=== PATIENT | male | born 1970 | race Caucasian/White ===

== ENCOUNTER 2021-12-07 05:10 | Day surgery (SDC) | payer OTHER ==
[2021-12-04 14:33] VITALS: BMI 26.8
[2021-12-07 14:25] VITALS: TEMP 97.1
[2021-12-07 15:14] VITALS: BP 105/65; PULSE 66
== END 2021-12-07 15:10 | disposition home or self-care (01) ==
LOC: JASU-ENDO 05:10
PROVIDERS: ATTEND Internal Medicine Gastroenterology
PROC: 0DBP8ZX Excision of Rectum, Via Natural or Artificial Opening Endoscopic, Diagnostic (ICD-10-PCS; principal; 2021-12-07 14:30)
DX: Z12.11 Encounter for screening for malignant neoplasm of colon (principal); Z86.010 Personal history of colon polyps; K62.1 Rectal polyp; K64.8 Other hemorrhoids
CPT/HCPCS: 88305-TC

== ENCOUNTER 2022-04-12 04:42 | Day surgery (SDC) | payer OTHER ==
[2022-04-06 14:23] VITALS: BMI 26.8
[2022-04-12] MEDS ORDERED: LIDOCAINE HCL 2% JELLY 10 ML CARTRIDGE ONE (10:06)
[2022-04-12] MEDS ORDERED: ACETAMINOPHEN INJECTION 100 ML IVPB ONE (10:07)
[2022-04-12] MEDS ORDERED: LIDOCAINE HCL 2% JELLY 10 ML CARTRIDGE TP ONE (10:13)
[2022-04-12 10:18] VITALS: TEMP 97.6
[2022-04-12 10:48] VITALS: BP 115/83; PULSE 70
== END 2022-04-12 10:57 | disposition home or self-care (01) ==
LOC: JASU-ENDO 04:42
PROVIDERS: ATTEND Internal Medicine Gastroenterology
PROC: 06LY8CC Occlusion of Hemorrhoidal Plexus with Extraluminal Device, Via Natural or Artificial Opening Endoscopic (ICD-10-PCS; principal; 2022-04-12 09:30)
DX: K64.3 Fourth degree hemorrhoids (principal)
CPT/HCPCS: 88305-TC; 88342-TC

== ENCOUNTER 2022-04-14 14:25 | Inpatient (IN) | payer OTHER ==
[2022-04-14 14:31] VITALS: BMI 26.4
[2022-04-14] MEDS ORDERED: ACETAMINOPHEN 1000 MG/100 ML BAG IVPB ONE (14:48)
[2022-04-14] MEDS ORDERED: SODIUM CHLORIDE 1,000 ML IV STA (14:48)
[2022-04-14] MEDS ORDERED: ACETAMINOPHEN INJECTION 100 ML IVPB ONE (15:57)
[2022-04-14 16:24] LABS: BASO % 0.2 % (0-2.0); EOS % 0.3 % (0-4.5); HEMATOCRIT 39.2 % (35.4-49); HEMOGLOBIN 12.6 GM/dL (11.7-16.9); LYMPH % 8.8 % (8-40); MCHC 32.2 g/dl (32.0-35.9); MEAN CELL VOLUME 71.4 fl (80-96); MEAN PLT VOLUME 8.3 fl (7.5-11.1); MONO % 9.9 % (3.8-10.2); NEUT % 80.8 % (42.8-82.8); PLATELET COUNT 265 10^3/uL (134-434); RBC 5.49 M/mm3 (4.00-5.60); RDW 16.6 % (11.9-15.9); WHITE BLOOD COUNT 13.3 K/mm3 (4.0-10.0)
[2022-04-14 16:52] LABS: ALBUMIN 3.7 g/dl (3.4-5.0); BLOOD UREA NITROGEN 18.8 mg/dL (7-18)
[2022-04-14 16:55] LABS: CREATININE 1.1 mg/dL (0.55-1.3)
[2022-04-14 16:56] LABS: BILIRUBIN,TOTAL 0.8 mg/dL (0.2-1)
[2022-04-14] MEDS ORDERED: CEFTRIAXONE 1,000 MG in DEXTROSE 5%-WATER - 50 ML IVPB ONE (19:53)
[2022-04-14] MEDS ORDERED: CEFTRIAXONE 1 GM/50 ML BAG ONE (20:33)
[2022-04-14 23:23] LABS: EPI CELLS 4 /uL (0-25.1); HYALINE CASTS 2 /uL (0-3.1); PH,URINE 5.5 (5.0-8.0); URINE APPEARANCE CLEAR; URINE BACTERIA 0 /uL (0-1359); URINE BILIRUBIN NEGATIVE (NEGATIVE); URINE COLOR YELLOW; URINE GLUCOSE (UA) NEGATIVE (NEGATIVE); URINE KETONE 1+ (NEGATIVE); URINE LEUK ESTERASE NEGATIVE (NEGATIVE); URINE NITRITE NEGATIVE (NEGATIVE); URINE PROTEIN 1+ (NEGATIVE); URINE RBC 4 /uL (0-23.9); URINE UROBILINOGEN 0.2 mg/dL (0.2-1.0); URINE WBC 3 /uL (0-25.8)
[2022-04-14] MEDS ORDERED: DOCUSATE SODIUM 100 MG CAPSULE (FP) PO ONE (23:54)
[2022-04-14] MEDS: DOCUSATE SODIUM 100 MG CAPSULE (FP) PO SCH (23:55)
[2022-04-15] MEDS: DEXTROSE 5%-NORMAL SALINE 1,000 ML IV SCH (05:38)
[2022-04-15 07:37] LABS: BASO % 0.3 % (0-2.0); EOS % 0.3 % (0-4.5); HEMATOCRIT 40.6 % (35.4-49); HEMOGLOBIN 13.2 GM/dL (11.7-16.9); LYMPH % 8.1 % (8-40); MCHC 32.6 g/dl (32.0-35.9); MEAN CELL VOLUME 70.5 fl (80-96); MEAN PLT VOLUME 9.4 fl (7.5-11.1); MONO % 11.6 % (3.8-10.2); NEUT % 79.7 % (42.8-82.8); PLATELET COUNT 262 10^3/uL (134-434); RBC 5.76 M/mm3 (4.00-5.60); RDW 16.6 % (11.9-15.9); WHITE BLOOD COUNT 14.1 K/mm3 (4.0-10.0)
[2022-04-15 08:04] LABS: BLOOD UREA NITROGEN 18.7 mg/dL (7-18); CALCIUM 8.1 mg/dL (8.5-10.1); MAGNESIUM 2.1 mg/dL (1.8-2.4)
[2022-04-15 08:05] LABS: ALBUMIN 3.2 g/dl (3.4-5.0)
[2022-04-15 08:08] LABS: BILIRUBIN,TOTAL 0.7 mg/dL (0.2-1); PHOSPHOROUS 3.4 mg/dL (2.5-4.9)
[2022-04-15 08:09] LABS: TOT PROT 6.3 g/dl (6.4-8.2)
[2022-04-15 08:52] LABS: INR 1.3 (0.83-1.09)
[2022-04-15 08:55] LABS: ACTIVATED PTT 57.1 SECONDS (25.2-36.5)
[2022-04-15] MEDS ORDERED: CEFTRIAXONE 1 GM in DEXTROSE 5%-WATER - 50 ML IVPB SCH (10:00)
[2022-04-15] MEDS ORDERED: POLYETHYLENE GLYCOL 3350 119 GM BTL PO SCH (10:30)
[2022-04-15] MEDS: DOCUSATE SODIUM 100 MG CAPSULE (FP) PO SCH ×2 (10:30→22:01)
[2022-04-15] MEDS ORDERED: DOCUSATE SODIUM 100 MG CAPSULE (FP) PO ONE ×2 (11:09→21:58)
[2022-04-15] MEDS ORDERED: CEFTRIAXONE 1 GM/50 ML BAG ONE (11:10)
[2022-04-15] MEDS ORDERED: oxyCODONE HCL 5 MG TABLET ONE ×2 (11:47→21:58)
[2022-04-15] MEDS: oxyCODONE HCL 5 MG TABLET PO PRN ×2 (11:49→22:00)
[2022-04-15 15:46] LABS: HIV INTERPRETATION NEGATIVE (NEGATIVE)
[2022-04-16] MEDS ORDERED: ACETAMINOPHEN 500 MG TABLET (FP) PO PRN (01:39)
[2022-04-16] MEDS ORDERED: CLINDAMYCIN 900 MG PREMIX IVPB 900 MG/50 ML BAG IVPB ONE ×2 (01:44→10:34)
[2022-04-16] MEDS ORDERED: VANCOMYCIN/WATER 1,250 MG/250 ML BAG IVPB ONE (01:45)
[2022-04-16] MEDS ORDERED: PIPERACILLIN/TAZOB 3.375 GM 3.375 GM/50 ML BAG IVPB ONE ×2 (01:45→10:35)
[2022-04-16] MEDS ORDERED: VANCOMYCIN/WATER 1250 MG 1,250 MG/250 ML BAG IVPB ONE ×2 (01:45)
[2022-04-16] MEDS: PIPERACILLIN/TAZOB 3.375 GM 3.375 GM in DEXTROSE 5%-WATER - 50 ML IVPB SCH ×3 (02:30→18:33)
[2022-04-16] MEDS: LACTATED RINGERS SOLUTION 1,000 ML/1,000 ML INFUS.BAG IV SCH (02:47)
[2022-04-16] MEDS: CLINDAMYCIN 900 MG PREMIX IVPB 900 MG/50 ML BAG IVPB SCH ×3 (02:47→18:32)
[2022-04-16 07:54] LABS: BASO % 0.2 % (0-2.0); EOS % 0.2 % (0-4.5); HEMOGLOBIN 12.7 GM/dL (11.7-16.9); LYMPH % 7.5 % (8-40); MCH 23.2 pg (25.7-33.7); MCHC 32.5 g/dl (32.0-35.9); MEAN CELL VOLUME 71.2 fl (80-96); MEAN PLT VOLUME 9.9 fl (7.5-11.1); MONO % 12.1 % (3.8-10.2); PLATELET COUNT 257 10^3/uL (134-434); RBC 5.47 M/mm3 (4.00-5.60); RDW 16.9 % (11.9-15.9); WHITE BLOOD COUNT 13.7 K/mm3 (4.0-10.0)
[2022-04-16 08:03] LABS: INR 1.15 (0.83-1.09); PROTHROMBIN TIME (PATIENT) 13.2 SEC (9.7-13.0)
[2022-04-16 08:06] LABS: ACTIVATED PTT 24.3 SECONDS (25.2-36.5)
[2022-04-16 08:10] LABS: ALBUMIN 2.8 g/dl (3.4-5.0); BILIRUBIN,TOTAL 0.6 mg/dL (0.2-1); BLOOD UREA NITROGEN 21.4 mg/dL (7-18); CALCIUM 7.8 mg/dL (8.5-10.1); PHOSPHOROUS 2.9 mg/dL (2.5-4.9); TOT PROT 5.6 g/dl (6.4-8.2)
[2022-04-16] MEDS ORDERED: POLYETHYLENE GLYCOL (HEALTHYLAX) 3350 17 GM PACKET PO SCH (10:00)
[2022-04-16] MEDS ORDERED: POLYETHYLENE GLYCOL (HEALTHYLAX) 3350 17 GM PACKET ONE (10:34)
[2022-04-16] MEDS ORDERED: DOCUSATE SODIUM 100 MG CAPSULE (FP) PO ONE (10:34)
[2022-04-16] MEDS: DOCUSATE SODIUM 100 MG CAPSULE (FP) PO SCH ×2 (10:58→21:44)
[2022-04-16] MEDS: POLYETHYLENE GLYCOL (HEALTHYLAX) 3350 17 GM PACKET PO SCH ×2 (10:58→21:44)
[2022-04-16] MEDS: DEXTROSE 5%-NORMAL SALINE 1,000 ML IV SCH (11:30)
[2022-04-16] MEDS ORDERED: DEXTROSE 5%-WATER - 50 ML IVPB ONE (18:16)
[2022-04-16] MEDS ORDERED: PIPERACILLIN/TAZOBACTAM 3.375 GM VIAL IVPB ONE (18:16)
[2022-04-17] MEDS: CLINDAMYCIN 900 MG PREMIX IVPB 900 MG/50 ML BAG IVPB SCH ×2 (02:02→10:43)
[2022-04-17] MEDS ORDERED: MELATONIN 5 MG TABLETS PO SCH ×2 (02:29→02:30)
[2022-04-17] MEDS: LACTATED RINGERS SOLUTION 1,000 ML/1,000 ML INFUS.BAG IV SCH (06:56)
[2022-04-17 10:11] LABS: HEMATOCRIT 36.4 % (35.4-49); MCH 23.2 pg (25.7-33.7); MCHC 32.9 g/dl (32.0-35.9); MEAN CELL VOLUME 70.5 fl (80-96); MEAN PLT VOLUME 9.9 fl (7.5-11.1); PLATELET COUNT 242 10^3/uL (134-434); RBC 5.16 M/mm3 (4.00-5.60); RDW 16.6 % (11.9-15.9); WHITE BLOOD COUNT 10.4 K/mm3 (4.0-10.0)
[2022-04-17 10:29] LABS: ALBUMIN 2.5 g/dl (3.4-5.0); CALCIUM 7.7 mg/dL (8.5-10.1)
[2022-04-17 10:30] LABS: BLOOD UREA NITROGEN 23.6 mg/dL (7-18)
[2022-04-17 10:33] LABS: CREATININE 0.9 mg/dL (0.55-1.3)
[2022-04-17 10:34] LABS: BILIRUBIN,TOTAL 0.4 mg/dL (0.2-1); TOT PROT 5.2 g/dl (6.4-8.2)
[2022-04-17] MEDS: PIPERACILLIN/TAZOB 3.375 GM 3.375 GM in DEXTROSE 5%-WATER - 50 ML IVPB SCH ×3 (10:40→10:43)
[2022-04-17] MEDS ORDERED: PIPERACILLIN/TAZOBACTAM 4.5 GM VIAL IVPB ONE ×2 (10:56→18:16)
[2022-04-17] MEDS ORDERED: DEXTROSE 5%-WATER 100 ML IVPB ONE ×2 (10:56→18:16)
[2022-04-17] MEDS: POLYETHYLENE GLYCOL (HEALTHYLAX) 3350 17 GM PACKET PO SCH ×2 (10:58→22:00)
[2022-04-17] MEDS: PIPERACILLIN/TAZOB 4.5 GM 4.5 GM in DEXTROSE 5%-WATER 100 ML IVPB SCH ×2 (10:58→18:19)
[2022-04-17] MEDS: DOCUSATE SODIUM 100 MG CAPSULE (FP) PO SCH ×2 (10:58→21:59)
[2022-04-17] MEDS ORDERED: CLINDAMYCIN 900 MG PREMIX IVPB 900 MG/50 ML BAG IVPB SCH (18:00)
[2022-04-17] MEDS: SODIUM CHLORIDE 1,000 ML IV SCH (18:19)
[2022-04-17] MEDS ORDERED: WITCH HAZEL 50% (TUCKS) 40 PAD/JAR PAD TP PRN (20:49)
[2022-04-17] MEDS: LACTOBACILLUS ACIDOPHILUS 1 TABLET PO SCH ×2 (21:07→21:59)
[2022-04-17] MEDS: ZOLPIDEM TARTRATE 5 MG TABLET PO SCH (21:59)
[2022-04-18] MEDS ORDERED: DEXTROSE 5%-WATER 100 ML IVPB ONE ×3 (01:55→17:47)
[2022-04-18] MEDS ORDERED: PIPERACILLIN/TAZOBACTAM 4.5 GM VIAL IVPB ONE ×3 (01:55→17:47)
[2022-04-18] MEDS: PIPERACILLIN/TAZOB 4.5 GM 4.5 GM in DEXTROSE 5%-WATER 100 ML IVPB SCH ×3 (02:00→18:26)
[2022-04-18] MEDS ORDERED: oxyCODONE HCL 5 MG TABLET PO PRN (06:55)
[2022-04-18 10:03] LABS: HEMOGLOBIN 10.9 GM/dL (11.7-16.9); MCH 23.4 pg (25.7-33.7); MCHC 33.1 g/dl (32.0-35.9); MEAN CELL VOLUME 70.5 fl (80-96); MEAN PLT VOLUME 9.1 fl (7.5-11.1); PLATELET COUNT 204 10^3/uL (134-434); RBC 4.68 M/mm3 (4.00-5.60); RDW 17.2 % (11.9-15.9); WHITE BLOOD COUNT 7.4 K/mm3 (4.0-10.0)
[2022-04-18 10:35] LABS: BLOOD UREA NITROGEN 16.8 mg/dL (7-18); CALCIUM 7.3 mg/dL (8.5-10.1)
[2022-04-18 10:36] LABS: ALBUMIN 2.4 g/dl (3.4-5.0)
[2022-04-18 10:38] LABS: CREATININE 0.8 mg/dL (0.55-1.3)
[2022-04-18 10:40] LABS: BILIRUBIN,TOTAL 0.3 mg/dL (0.2-1); TOT PROT 4.8 g/dl (6.4-8.2)
[2022-04-18] MEDS: LACTOBACILLUS ACIDOPHILUS 1 TABLET PO SCH ×2 (10:48→21:40)
[2022-04-18] MEDS: DOCUSATE SODIUM 100 MG CAPSULE (FP) PO SCH ×2 (10:48→21:40)
[2022-04-18] MEDS: POLYETHYLENE GLYCOL (HEALTHYLAX) 3350 17 GM PACKET PO SCH ×3 (10:48→21:42)
[2022-04-18] MEDS: HYDROCORTISONE 2.5% TOPICAL CREAM 30 GM TUBE RC SCH ×2 (10:48→21:40)
[2022-04-18] MEDS ORDERED: IRON SUCROSE INJECTION 200 MG in SODIUM CHLORIDE 90 ML IVPB ONE (11:30)
[2022-04-18] MEDS: LIDOCAINE HCL 2% JELLY (30 ML/TUBE) TP SCH (13:10)
[2022-04-18] MEDS: SODIUM CHLORIDE 1,000 ML IV SCH (18:27)
[2022-04-18] MEDS: ZOLPIDEM TARTRATE 5 MG TABLET PO SCH ×2 (21:40→21:45)
[2022-04-19] MEDS ORDERED: PIPERACILLIN/TAZOBACTAM 4.5 GM VIAL IVPB ONE ×3 (01:14→17:29)
[2022-04-19] MEDS ORDERED: DEXTROSE 5%-WATER 100 ML IVPB ONE ×3 (01:14→17:29)
[2022-04-19] MEDS: PIPERACILLIN/TAZOB 4.5 GM 4.5 GM in DEXTROSE 5%-WATER 100 ML IVPB SCH ×3 (01:28→17:36)
[2022-04-19] MEDS: DOCUSATE SODIUM 100 MG CAPSULE (FP) PO SCH ×2 (11:04→21:41)
[2022-04-19] MEDS: LIDOCAINE HCL 2% JELLY (30 ML/TUBE) TP SCH (11:04)
[2022-04-19] MEDS: POLYETHYLENE GLYCOL (HEALTHYLAX) 3350 17 GM PACKET PO SCH ×2 (11:04→21:41)
[2022-04-19] MEDS: LACTOBACILLUS ACIDOPHILUS 1 TABLET PO SCH ×2 (11:04→21:38)
[2022-04-19] MEDS: HYDROCORTISONE 2.5% TOPICAL CREAM 30 GM TUBE RC SCH ×2 (11:05→21:41)
[2022-04-19 11:52] LABS: BASO % 1.3 % (0-2.0); EOS % 0.9 % (0-4.5); HEMATOCRIT 33.3 % (35.4-49); HEMOGLOBIN 10.9 GM/dL (11.7-16.9); LYMPH % 10.9 % (8-40); MCH 23.3 pg (25.7-33.7); MCHC 32.9 g/dl (32.0-35.9); MEAN CELL VOLUME 70.8 fl (80-96); MEAN PLT VOLUME 9.5 fl (7.5-11.1); NEUT % 70.9 % (42.8-82.8); PLATELET COUNT 205 10^3/uL (134-434); RDW 17.2 % (11.9-15.9); WHITE BLOOD COUNT 6.8 K/mm3 (4.0-10.0)
[2022-04-19 12:03] LABS: CALCIUM 7.6 mg/dL (8.5-10.1)
[2022-04-19 12:04] LABS: ALBUMIN 2.4 g/dl (3.4-5.0); BLOOD UREA NITROGEN 10.4 mg/dL (7-18)
[2022-04-19 12:07] LABS: CREATININE 0.7 mg/dL (0.55-1.3)
[2022-04-19 12:08] LABS: BILIRUBIN,TOTAL 0.3 mg/dL (0.2-1)
[2022-04-19] MEDS ORDERED: FUROSEMIDE 40 MG/4 ML INJECTABLE VIAL IVPUSH ONE ×2 (15:06→15:30)
[2022-04-19] MEDS: ZOLPIDEM TARTRATE 5 MG TABLET PO SCH (21:40)
[2022-04-20] MEDS: ZOLPIDEM TARTRATE 5 MG TABLET PO SCH ×2 (00:30→21:24)
[2022-04-20] MEDS ORDERED: PIPERACILLIN/TAZOBACTAM 4.5 GM VIAL IVPB ONE ×3 (02:32→17:44)
[2022-04-20] MEDS ORDERED: DEXTROSE 5%-WATER 100 ML IVPB ONE ×3 (02:32→17:44)
[2022-04-20] MEDS: PIPERACILLIN/TAZOB 4.5 GM 4.5 GM in DEXTROSE 5%-WATER 100 ML IVPB SCH ×3 (02:57→18:06)
[2022-04-20 08:27] LABS: HEMATOCRIT 31.5 % (35.4-49); HEMOGLOBIN 10.2 GM/dL (11.7-16.9); MCH 22.9 pg (25.7-33.7); MCHC 32.5 g/dl (32.0-35.9); MEAN CELL VOLUME 70.7 fl (80-96); MEAN PLT VOLUME 8.6 fl (7.5-11.1); PLATELET COUNT 201 10^3/uL (134-434); RBC 4.45 M/mm3 (4.00-5.60); RDW 17.2 % (11.9-15.9); WHITE BLOOD COUNT 5.5 K/mm3 (4.0-10.0)
[2022-04-20 08:44] LABS: CALCIUM 7.6 mg/dL (8.5-10.1)
[2022-04-20 08:45] LABS: BLOOD UREA NITROGEN 7.3 mg/dL (7-18)
[2022-04-20 08:48] LABS: CREATININE 0.8 mg/dL (0.55-1.3)
[2022-04-20] MEDS: LACTOBACILLUS ACIDOPHILUS 1 TABLET PO SCH ×2 (10:30→21:24)
[2022-04-20] MEDS: POLYETHYLENE GLYCOL (HEALTHYLAX) 3350 17 GM PACKET PO SCH ×2 (10:30→21:24)
[2022-04-20] MEDS: HYDROCORTISONE 2.5% TOPICAL CREAM 30 GM TUBE RC SCH ×2 (10:31→21:24)
[2022-04-20] MEDS: DOCUSATE SODIUM 100 MG CAPSULE (FP) PO SCH ×3 (10:31→21:36)
[2022-04-20] MEDS: LIDOCAINE HCL 2% JELLY (30 ML/TUBE) TP SCH (10:31)
[2022-04-20] MEDS: POTASSIUM CHLORIDE TABS 20 MEQ TABLET.ER (FP) PO SCH ×2 (10:31→21:24)
[2022-04-21] MEDS ORDERED: DEXTROSE 5%-WATER 100 ML IVPB ONE ×3 (01:00→17:47)
[2022-04-21] MEDS ORDERED: PIPERACILLIN/TAZOBACTAM 4.5 GM VIAL IVPB ONE ×3 (01:00→17:47)
[2022-04-21] MEDS: PIPERACILLIN/TAZOB 4.5 GM 4.5 GM in DEXTROSE 5%-WATER 100 ML IVPB SCH ×3 (01:46→17:54)
[2022-04-21 09:48] LABS: HEMATOCRIT 29.4 % (35.4-49); HEMOGLOBIN 9.7 GM/dL (11.7-16.9); MCH 23.5 pg (25.7-33.7); MEAN CELL VOLUME 71.1 fl (80-96); MEAN PLT VOLUME 8.9 fl (7.5-11.1); PLATELET COUNT 210 10^3/uL (134-434); RBC 4.14 M/mm3 (4.00-5.60); RDW 17.2 % (11.9-15.9); WHITE BLOOD COUNT 5.6 K/mm3 (4.0-10.0)
[2022-04-21 10:18] LABS: CALCIUM 8.1 mg/dL (8.5-10.1)
[2022-04-21 10:22] LABS: CREATININE 0.7 mg/dL (0.55-1.3)
[2022-04-21] MEDS: POLYETHYLENE GLYCOL (HEALTHYLAX) 3350 17 GM PACKET PO SCH ×2 (11:02→23:44)
[2022-04-21] MEDS: LACTOBACILLUS ACIDOPHILUS 1 TABLET PO SCH ×2 (11:02→23:44)
[2022-04-21] MEDS: DOCUSATE SODIUM 100 MG CAPSULE (FP) PO SCH ×2 (11:03→23:44)
[2022-04-21] MEDS: HYDROCORTISONE 2.5% TOPICAL CREAM 30 GM TUBE RC SCH ×2 (11:03→23:49)
[2022-04-21] MEDS: LIDOCAINE HCL 2% JELLY (30 ML/TUBE) TP SCH (11:03)
[2022-04-21] MEDS ORDERED: MAGNESIUM SULFATE 16 OZ CRYSTALS TP ONE (13:07)
[2022-04-21] MEDS ORDERED: VANCOMYCIN/WATER 1,250 MG/250 ML BAG IVPB SCH (13:30)
[2022-04-21] MEDS: MAGNESIUM SULFATE 16 OZ CRYSTALS TP SCH (17:55)
[2022-04-21] MEDS: ZOLPIDEM TARTRATE 5 MG TABLET PO SCH (23:44)
[2022-04-22] MEDS ORDERED: PIPERACILLIN/TAZOBACTAM 4.5 GM VIAL IVPB ONE ×3 (02:15→17:08)
[2022-04-22] MEDS ORDERED: DEXTROSE 5%-WATER 100 ML IVPB ONE ×3 (02:15→17:08)
[2022-04-22] MEDS: VANCOMYCIN/WATER 1250 MG 1,250 MG/250 ML BAG IVPB SCH ×2 (02:25→14:58)
[2022-04-22] MEDS: PIPERACILLIN/TAZOB 4.5 GM 4.5 GM in DEXTROSE 5%-WATER 100 ML IVPB SCH ×3 (02:26→17:16)
[2022-04-22] MEDS: DOCUSATE SODIUM 100 MG CAPSULE (FP) PO SCH (09:46)
[2022-04-22] MEDS: LACTOBACILLUS ACIDOPHILUS 1 TABLET PO SCH (09:46)
[2022-04-22] MEDS: LIDOCAINE HCL 2% JELLY (30 ML/TUBE) TP SCH (09:47)
[2022-04-22] MEDS: HYDROCORTISONE 2.5% TOPICAL CREAM 30 GM TUBE RC SCH (09:47)
[2022-04-22] MEDS: MAGNESIUM SULFATE 16 OZ CRYSTALS TP SCH (09:47)
[2022-04-22] MEDS: POLYETHYLENE GLYCOL (HEALTHYLAX) 3350 17 GM PACKET PO SCH (10:06)
[2022-04-22 10:56] LABS: HEMATOCRIT 28.3 % (35.4-49); HEMOGLOBIN 9.1 GM/dL (11.7-16.9); MCH 23.3 pg (25.7-33.7); MCHC 32.3 g/dl (32.0-35.9); MEAN CELL VOLUME 72.1 fl (80-96); MEAN PLT VOLUME 8.6 fl (7.5-11.1); PLATELET COUNT 238 10^3/uL (134-434); RBC 3.92 M/mm3 (4.00-5.60); RDW 17.4 % (11.9-15.9); WHITE BLOOD COUNT 5.4 K/mm3 (4.0-10.0)
[2022-04-22 11:19] LABS: CALCIUM 8.2 mg/dL (8.5-10.1)
[2022-04-22 11:20] LABS: BLOOD UREA NITROGEN 4.9 mg/dL (7-18)
[2022-04-22 11:23] LABS: CREATININE 0.7 mg/dL (0.55-1.3)
[2022-04-22 15:18] VITALS: BP 130/70; PULSE 87; TEMP 98.9
== END 2022-04-22 19:17 | disposition home or self-care (01) | DRG 393 ==
LOC: JER 14:25 → JERBED 19:56 → J8W 04-16 11:20
PROVIDERS: ADMIT Hospitalist; ATTEND Internal Medicine
DX: K62.89 Other specified diseases of anus and rectum (principal); A41.89 Other specified sepsis; K61.1 Rectal abscess; L03.317 Cellulitis of buttock; K64.8 Other hemorrhoids; D50.9 Iron deficiency anemia, unspecified; R00.0 Tachycardia, unspecified; D72.829 Elevated white blood cell count, unspecified; D12.8 Benign neoplasm of rectum; K52.9 Noninfective gastroenteritis and colitis, unspecified; Z98.890 Other specified postprocedural states; N43.2 Other hydrocele
CPT/HCPCS: 36415; 72193-TC; 76604; 80048; 80053; 81003; 82728; 83021; 83036; 83540; 83550; 83735; 84100; 84443; 85025; 85027; 85045; 85610; 85660; 85730; 86140; 86850; 86900; 86901; 87040; 87070; 87086; 87205; 87324; 87389; 87449; 87491; 87591; 99285-25; C9803-CS; J1756; Q9967; U0003; U0005